=== PATIENT | female | born 1985 ===

== ENCOUNTER 2017-06-14 12:38 | Emergency (ER) | payer BC ==
[~2017-06-14] VITALS: Ht 162.6 cm; Wt 61.2 kg
[2017-06-14 12:50] VITALS: Ht 162.6 cm; Wt 61.2 kg
[2017-06-14 15:22] VITALS: BP 121/69
== END 2017-06-14 15:22 | disposition home or self-care (01) ==
LOC: ED 12:38
DX: S13.4XXA Sprain of ligaments of cervical spine, initial encounter (principal); S09.90XA Unspecified injury of head, initial encounter; V49.9XXA Car occupant (driver) (passenger) injured in unspecified traffic accident, initial encounter; Y93.89 Activity, other specified; Y92.89 Other specified places as the place of occurrence of the external cause; Y99.8 Other external cause status
CPT/HCPCS: Q0162